=== PATIENT | female | born 1970 | race Caucasian/White ===

== ENCOUNTER 2019-08-17 13:07 | Emergency (ER) | payer OTHER, MEDICAID, SELFPAY ==
[~2019-08-17] VITALS: Ht 154.9 cm; Wt 61.2 kg
[2019-08-17 13:30] VITALS: BP 147/90; Ht 154.9 cm; Wt 61.2 kg
== END 2019-08-17 14:54 | disposition home or self-care (01) ==
LOC: ED 13:07
DX: R05 Cough (principal); J02.9 Acute pharyngitis, unspecified; J34.89 Other specified disorders of nose and nasal sinuses; Z03.818 Encounter for observation for suspected exposure to other biological agents ruled out
CPT/HCPCS: Q0092

== ENCOUNTER 2019-09-18 17:14 | Emergency (ER) | payer OTHER, MEDICAID, SELFPAY ==
[~2019-09-18] VITALS: Ht 157.5 cm; Wt 63.5 kg
[2019-09-18 17:28] VITALS: Ht 157.5 cm; Wt 63.5 kg
[2019-09-18 17:56] VITALS: BP 158/90
== END 2019-09-18 17:56 | disposition home or self-care (01) ==
LOC: ED 17:14
DX: Z20.828 Contact with and (suspected) exposure to other viral communicable diseases (principal)
CPT/HCPCS: U0003-CS

== ENCOUNTER 2020-03-03 14:29 | Emergency (ER) | payer OTHER, MEDICAID, SELFPAY ==
[~2020-03-03] VITALS: Ht 154.9 cm; Wt 65.8 kg
[2020-03-03 14:37] VITALS: BP 162/87; Ht 154.9 cm; Wt 65.8 kg
== END 2020-03-03 17:30 | disposition home or self-care (01) ==
LOC: ED 14:29
DX: U07.1 COVID-19 (principal)